=== PATIENT | female | born 1935 | race Caucasian/White ===

== ENCOUNTER 2022-07-04 11:48 | Emergency (ER) | payer MEDICARE, MEDICAID, SELFPAY ==
[2022-07-04 12:49] VITALS: BP 153/78; PULSE 71; RESP 16; TEMP 37.1; O2SAT 95
--- NOTE | 2022-07-04 13:01 | XR_ITS ---
WS: [id number] Portable AP upright chest, 07/04/2022 Clinical Data: dyspnea/cough Comparison: None. Findings: No nodules, masses or effusions are seen. The heart is likely enlarged. The pulmonary vascu larity is not increased. No pneumonia or pneumothorax is seen. The aortic arch and descending thoraci c aorta show calcification and tortuosity. XR/XR chest 1V portable [id number] Impression: Atherosclerosis and cardiomegaly.
--- NOTE | 2022-07-04 13:03 | ED_ITS ---
HPI - General Adult General: Chief complaint: General Medical Stated complaint: Def, sick all morning Time Seen by Provider: 07/04/22 13:00 Source: patient Mode of arrival: ambulatory Limitations: no limitations History of Present Illness: 87-year-old female presents emergency room with her daughter. Presented via private vehicle daughter is quite tearful. She says the patient was admitted to the hospital in [place] at [facility] in the hospital for evidently 2 months. From her description at first they were not sure who the patient was and eventually the daughter became alerted to the fact that her mother was missing because the post office contacted the local griddle cook's department that the patient had not been picking up her mail. Patient was eventually tracked down to the senior living. During this time she had significant dementia issues also had a course of COVID. She was discharged home and is supposed to be going to an assisted living but evidently she disappeared again and her daughter found her this morning at a family graveside in the [place] area. For the last couple of days evidently patient has been sleeping in her car [place] the [place] she is been having diarrhea evidently and had lost control of her bowels shortly after arrival here. Patient is deaf and nonverbal daughter provides all the history. Onset (ago): unknown Associated symptoms: Reports confusion and malaise; Deny chest pain, cough, diaphoresis, decreased appetite, dyspnea, fevers/chills, headache(s), nausea, rash, palpitations, seizures, short of breath, syncope, vomiting or weakness Treatments prior to arrival: none Review of Systems Const: Reports: malaise; Denies: fever(s), chills, fatigue or diaphoresis ENMT: Denies: throat pain, ear or mastoid pain, nasal discharge or nasal congestion Card: Denies: chest pain, palpitations or syncope Resp: Denies: dyspnea GI: Reports: diarrhea; Denies: abdominal pain, nausea or vomiting : Denies: flank pain, difficulty voiding, dysuria, urinary frequency or urinary urgency Skin/Breast: Denies: rash Neuro: Reports: confusion; Denies: headache(s) [facility] ED PFSH: Medical History (Updated 07/16/22 @ 12:09 by Edward Martines DO) Dementia Diarrhea Hyperlipidemia Hypertension Social History (Updated 07/16/22 @ 12:08 by Edward Martines DO) Smoking and tobacco status: never smoked Alcohol intake: never Physical Exam Const: GENERAL APPEARANCE: cooperative and comfortable ORIENTATION/CONSCIOUSNESS: Yes awake HENMT: COMMON NORMALS: normocephalic and atraumatic HEAD & SCALP: normocephalic and atraumatic Eye: COMMON NORMALS: Equal, round and reactive pupils present, EOMs intact bilaterally, conjunctivae normal and no scleral icterus CONJUNCTIVA: Yes conjunctivae normal PUPIL: Yes Equal, round and reactive pupils present Resp: COMMON NORMALS: normal respiratory effort, No retractions, No use of accessory muscles and clear to auscultation bilaterally AUSCULTATION: clear to auscultation bilaterally Cardio: COMMON NORMALS: regular rate, regular rhythm and No murmurs present (Cardio) RATE: regular rate RHYTHM: regular rhythm GI: COMMON NORMALS: Soft to palpation and No hepatosplenomegaly present AUSCULTATION: Yes normoactive bowel sounds PALPATION: Yes Soft to palpation, No Tenderness to palpation present (GI), No Guarding due to palpation present (GI) and Yes No hepatosplenomegaly present Extremity: COMMON NORMALS: normal to inspection, capillary refill normal, no clubbing, cyanosis or edema, no calf tenderness and no pedal edema Skin: COMMON NORMALS: no rashes or lesions noted GENERAL SKIN EXAM: no rashes or lesions noted Course Vital Signs: Vital signs: Vital Signs Temperature 98.7 F 07/04/22 12:49 Pulse Rate 77 07/04/22 15:30 Respiratory Rate 16 07/04/22 15:30 Blood Pressure 130/105 07/04/22 15:30 Pulse Oximetry 97 07/04/22 15:30 Oxygen Delivery Ms thod 07/04/22 15:30 [facility] - General Adult Medical Decision Making Labs and EKG reviewed. Patient is not acutely ill at this time. She is deaf and she is able to sign coherently evidently with the daughter who relays information for us. She is not in any acute distress at this time her vital signs are stable. Discharge patient home strongly recommend they seek placement in a senior living for improved level of care. Patient had no further episodes of diarrhea while in the emergency room. Medical Records I reviewed the patient's medical records. Lab Data I reviewed the patient's lab results. : 07/04/22 13:30 07/04/22 13:30 Radiology Impressions Chest X-Ray 07/04/22 13:01 Impression: Atherosclerosis and cardiomegaly. Laboratory Results WBC 6.2 10^3/uL (4.0-10.0) 07/04/22 13:30 RBC 5.54 10^6/uL (4.1-5.3) H 07/04/22 13:30 Hgb 15.5 g/dL (11.5-15.3) H 07/04/22 13:30 Hct 48.4 % (37.0-47.0) H 07/04/22 13:30 MCV 87.4 fl (81-99) 07/04/22 13:30 MCH 28.0 pg (28.0-34.0) 07/04/22 13:30 MCHC 32.0 g/dL (30.0-36.0) 07/04/22 13:30 RDW 13.5 % (12.1-15.1) 07/04/22 13:30 Plt Count 220 10^3/cmm (130-400) 07/04/22 13:30 MPV 12.5 fL (7.4-10.4) H 07/04/22 13:30 Neut % (Auto) 64.9 % 07/04/22 13:30 Lymph % (Auto) 21.0 % 07/04/22 13:30 Benton % (Auto) 8.3 % 07/04/22 13:30 Eos % (Auto) 4.4 % 07/04/22 13:30 Baso % (Auto) 1.1 % 07/04/22 13:30 Neut # (Auto) 4.01 10^3/uL (1.8-7.7) 07/04/22 13:30 Lymph # (Auto) 1.3 10^3/uL (0.8-4.8) 07/04/22 13:30 Benton # (Auto) 0.5 10^3/uL (0.2-0.9) 07/04/22 13:30 Eos # (Auto) 0.3 10^3/uL (0.0-0.8) 07/04/22 13:30 Baso # (Auto) 0.1 10^3/uL (0.0-0.1) 07/04/22 13:30 Nucleated RBC % (auto) 0 % 07/04/22 13:30 Nucleated RBCs # 0.0 /100WBC 07/04/22 13:30 Sodium 137 mmol/L (136-145) 07/04/22 13:30 Potassium 3.3 mmol/L (3.5-5.1) L 07/04/22 13:30 Chloride 98 mmol/L (98-107) 07/04/22 13:30 Carbon Dioxide 27 mmol/L (22-29) 07/04/22 13:30 Anion Gap 15.3 (5-19) 07/04/22 13:30 BUN 15 mg/dL (8-23) 07/04/22 13:30 Creatinine 0.9 mg/dL (0.5-0.9) 07/04/22 13:30 GFR Calculation Not Reportable 07/04/22 13:30 Glucose 123 mg/dL (65-115) H 07/04/22 13:30 Calculated Osmolality 286 mOsm/kg (285-295) 07/04/22 13:30 Calcium 9.4 mg/dL (8.5-10.5) 07/04/22 13:30 Total Bilirubin 0.7 mg/dL (0.15-1.2) 07/04/22 13:30 AST 35 U/L (0-32) H 07/04/22 13:30 ALT 37 U/L (0-33) H 07/04/22 13:30 Alkaline Phosphatase 86 IU/L (35-105) 07/04/22 13:30 Total Protein 7.5 g/dL (6.6-8.7) 07/04/22 13:30 Albumin 4.3 g/dL (3.5-5.2) 07/04/22 13:30 Globulin 3.2 g/dL (1.3-4.6) 07/04/22 13:30 Urine Color Yellow (Yellow) 07/04/22 14:25 Urine Appearance Clear (CLEAR) 07/04/22 14:25 Urine pH 5 (5-7) 07/04/22 14:25 Ur Specific Moran 1.025 (1.005-1.030) 07/04/22 14:25 Urine Protein Neg (Negative) 07/04/22 14:25 Urine Glucose (UA) Norm (Normal) 07/04/22 14:25 Urine Ketones Negative (Negative) 07/04/22 14:25 Urine Blood Neg (Negative) 07/04/22 14:25 Urine Nitrate Negative (Negative) 07/04/22 14:25 Urine Bilirubin Neg (Negative) 07/04/22 14:25 Urine Urobilinogen 1 mg/dL (Negative) H 07/04/22 14:25 Ur Leukocyte Esterase Negative (Negative) 07/04/22 14:25 Discharge Plan Discharge Clinical Impression: Dementia, Diarrhea Prescriptions: Discontinued metformin 500 mg Tablet 500 mg PO DAILY No Action Plavix 75 mg Tablet 75 mg PO DAILY amlodipine 5 mg Tablet 5 mg PO DAILY pravastatin 80 mg Tablet 80 mg PO DAILY lisinopril 40 mg Tablet 40 mg PO DAILY Discharge Orders: Discharge ED (Routine); Ordered 07/04/22 Ordered By: Edward Martines Discharge Diet: Usual diet Patient Instructions: Opioid Safety Activity Restrictions/Additional Instructions: You were tested for C. difficile colitis today. We will contact you with results of this test when it becomes available. Remainder of your exam was unremarkable and your labs have no significant abnormalities that would require hospitalization at this time. If symptoms worsen you can return. I would recommend stopping the metformin as it can contribute to diarrhea. Follow-up with your primary care doctor to look at the possibility of senior living placement as soon as you are able. Coding Level of Care Code ED [employer] Disclosure Act Specialist for Siddharth Fwd Exam Comprehensive
--- NOTE | 2022-07-04 13:23 | ECG_ITS ---
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 Measurements Intervals Milnor Rate: 72 P: 50 MI: 209 QRS: -22 QRSD: 151 T: 131 QT: 449 QTc: 492 Interpretive Statements SINUS RHYTHM LEFT BUNDLE BRANCH BLOCK [120+ ms QRS DURATION, 80+ ms Q/S IN V1/V2, 85+ ms R IN I/aVL/V5/V6] No previous ECG available for comparison Electronically Signed On 07-04-2022 13:55:48 CDT by Nneka Haney M.D. [email or web address]
[2022-07-04 13:41] LABS: Basophils # 0.1 10^3/uL (0.0-0.1); Basophils % 1.1 %; Eosinophils # 0.3 10^3/uL (0.0-0.8); Eosinophils % 4.4 %; Hematocrit 48.4 % (37.0-47.0); Hemoglobin 15.5 g/dL (11.5-15.3); Lymphocytes # 1.3 10^3/uL (0.8-4.8); Mean Corpuscular Volume 87.4 fl (81-99); Mean Platelet Volume 12.5 fL (7.4-10.4); Monocytes # 0.5 10^3/uL (0.2-0.9); Monocytes % 8.3 %; Neutrophils # 4.01 10^3/uL (1.8-7.7); Neutrophils % 64.9 %; Nucleated Red Blood Cells % 0 %; Platelet Count 220 10^3/cmm (130-400); Red Blood Count 5.54 10^6/uL (4.1-5.3); Red Cell Distribution Width 13.5 % (12.1-15.1); White Blood Count 6.2 10^3/uL (4.0-10.0)
[2022-07-04 14:03] LABS: Alanine Aminotransferase 37 U/L (0-33); Albumin Level 4.3 g/dL (3.5-5.2); Alkaline Phosphatase 86 IU/L (35-105); Anion Gap 15.3 (5-19); Aspartate Amino Transferase 35 U/L (0-32); Blood Urea Nitrogen 15 mg/dL (8-23); Calcium 9.4 mg/dL (8.5-10.5); Carbon Dioxide 27 mmol/L (22-29); Chloride 98 mmol/L (98-107); Globulin 3.2 g/dL (1.3-4.6); Glucose 123 mg/dL (65-115); Osmolality Calculated 286 mOsm/kg (285-295); Potassium 3.3 mmol/L (3.5-5.1); Sodium 137 mmol/L (136-145); Total Bilirubin 0.7 mg/dL (0.15-1.2); Total Protein 7.5 g/dL (6.6-8.7)
[2022-07-04 14:35] VITALS: BP 162/76; PULSE 70; RESP 15; O2SAT 96
[2022-07-04 14:39] LABS: Add Urine Microscopic? NO; Charge for UA Resulting for Rev
[2022-07-04 14:44] LABS: Bilirubin Urine Neg (Negative); Blood Urine Neg (Negative); Glucose Urine UA Norm (Normal); Ketones Urine Negative (Negative); Leukocyte Esterase Urine Negative (Negative); Nitrate Urine Negative (Negative); Protein Urine Neg (Negative); Specific Gravity, Urine 1.025 (1.005-1.030); Urine Appearance Clear (CLEAR); Urine Color Yellow (Yellow); Urobilinogen Urine 1 mg/dL (Negative); pH Urine 5 (5-7)
[2022-07-04 15:30] VITALS: BP 130/105; PULSE 77; RESP 16; O2SAT 97
== END 2022-07-04 16:30 | disposition home or self-care (01) ==
PROVIDERS: Emergency Provider Family Medicine
DX: F03.90 Unspecified dementia, unspecified severity, without behavioral disturbance, psychotic disturbance, mood disturbance, and anxiety (principal); R19.7 Diarrhea, unspecified; Z79.02 Long term (current) use of antithrombotics/antiplatelets; E78.5 Hyperlipidemia, unspecified; I10 Essential (primary) hypertension
CPT/HCPCS: 71045; 80053; 81003; 85025; 93005; 99285

== ENCOUNTER → 2024-12-23 09:05 | Outpatient (BNVA) | payer MEDICARE, MEDICAID, SELFPAY | PROVIDERS: Visit Provider Nurse Practitioner Family | DX: L71.8 Other rosacea (principal); L81.4 Other melanin hyperpigmentation; L57.8 Other skin changes due to chronic exposure to nonionizing radiation; D48.5 Neoplasm of uncertain behavior of skin | CPT/HCPCS: 11102; 99203 ==

== ENCOUNTER → 2025-03-06 07:47 | Outpatient (BNVA) | payer MEDICARE, MEDICAID, SELFPAY | PROVIDERS: Referring Provider Dermatology; Visit Provider Nurse Practitioner Family | DX: L57.8 Other skin changes due to chronic exposure to nonionizing radiation (principal); X32.XXXA Exposure to sunlight, initial encounter; L81.4 Other melanin hyperpigmentation; D48.5 Neoplasm of uncertain behavior of skin | CPT/HCPCS: 11102; 99213 ==

== ENCOUNTER → 2025-04-03 09:13 | Outpatient (BNVA) | payer MEDICARE, MEDICAID, SELFPAY | PROVIDERS: Visit Provider Dermatology | DX: C44.41 Basal cell carcinoma of skin of scalp and neck (principal) | CPT/HCPCS: 17273 ==

== ENCOUNTER → 2025-04-13 14:50 | Outpatient (BNVA) | payer MEDICARE, MEDICAID, SELFPAY | PROVIDERS: PCP Internal Medicine; Visit Provider Internal Medicine | DX: R07.9 Chest pain, unspecified (principal); I44.0 Atrioventricular block, first degree; I44.7 Left bundle-branch block, unspecified | CPT/HCPCS: 93005 ==

== ENCOUNTER → 2025-07-13 14:53 | Outpatient (BNVA) | payer MEDICARE, MEDICAID, SELFPAY | PROVIDERS: PCP Internal Medicine; Visit Provider Nurse Practitioner Family | DX: L71.8 Other rosacea (principal); L81.4 Other melanin hyperpigmentation; L57.8 Other skin changes due to chronic exposure to nonionizing radiation; X32.XXXA Exposure to sunlight, initial encounter; Z08 Encounter for follow-up examination after completed treatment for malignant neoplasm; Z85.828 Personal history of other malignant neoplasm of skin | CPT/HCPCS: 99213 ==